=== PATIENT | male | born 1985 | race Caucasian/White ===

== ENCOUNTER 2024-05-19 00:20 | Emergency (ER) | payer BC, SELFPAY ==
[2024-05-19 01:31] LABS: #Basophils 0.02 10x3/uL (0.0-0.2); #Eosinophils 0.24 10x3/uL (0.0-0.5); %Basophils 0.3 % (0.0-2.0); %Eosinophils 3.5 % (0.0-6.0); %Lymphocytes 22.6 % (18.0-47.0); %Monocytes 8.6 % (0.0-10.0); %Neutrophils 64.7 % (40.0-75.0); Hematocrit 41.1 % (38.8-50.0); Hemoglobin 13.9 g/dL (13.5-17.5); Mean Corpuscular HGB CONC 33.8 g/dL (32.0-36.0); Mean Corpuscular Hemoglobin 29.6 pg (27.0-33.0); Mean Corpuscular Volume 87.6 fL (81.2-95.1); Mean Platelet Volume 11.1 fL (7.4-10.4); Platelet Count 175 10x3/uL (150-450); RBC Distribution Width 13.1 % (11.5-14.5); Red Blood Cell (RBC) Count 4.69 10x6/uL (4.32-5.72)
[2024-05-19 01:45] LABS: ALT (SGPT) 38 U/L (8-55); AST (SGOT) 20 U/L (5-34); Albumin 3.8 g/dL (3.5-5.0); Alkaline Phosphatase 106 U/L (40-110); Anion Gap 12 mmol/L (10-20); BUN (Urea Nitrogen) 12 mg/dL (8.9-20.6); Bilirubin, Total 0.9 mg/dL (0.2-1.2); Calc. Creatinine Clearance 0 mL/min (70-130); Calcium 9.3 mg/dL (7.8-10.44); Carbon Dioxide 29 mmol/L (22-29); Chloride 103 mmol/L (98-107); Estimated GFR 91; Globulin 2.7 g/dL (2.4-3.5); Glucose 110 mg/dL (70-105); Potassium 3.7 mmol/L (3.5-5.1); Protein, Total 6.5 g/dL (6.0-8.3); Sodium 140 mmol/L (136-145)
[2024-05-19 01:51] LABS: Troponin I Less than 0.010 ng/mL (< 0.028)
== END 2024-05-19 02:20 | disposition home or self-care (01) ==
LOC: CSHERS 00:20
DX: R07.2 Precordial pain (principal); R04.0 Epistaxis; I10 Essential (primary) hypertension
CPT/HCPCS: 36415; 71045; 80053; 83880; 84484; 85025; 93005